=== PATIENT | male | born 1980 | race Caucasian/White ===

== ENCOUNTER 2022-08-20 21:59 | Emergency (ER) | payer SELFPAY ==
[2022-08-20] MEDS ORDERED: KETOROLAC TROMETHAMINE 30 MG/1 ML VIAL IVPUSH ONE (22:12)
[2022-08-20] MEDS ORDERED: ONDANSETRON 4 MG/2 ML VIAL IVPB ONE (22:12)
[2022-08-20] MEDS ORDERED: SODIUM CHLORIDE 1,000 ML IV ONE (22:12)
[2022-08-20] MEDS ORDERED: morphine CARPU-JECT 2 MG/1 ML DISP.SYRIN IVPUSH ONE (22:12)
[2022-08-20] MEDS ORDERED: morphine SULFATE 4 MG/ML VIAL ONE (22:26)
[2022-08-20] MEDS ORDERED: ONDANSETRON 4 MG/2 ML VIAL ONE (22:26)
[2022-08-20] MEDS ORDERED: KETOROLAC TROMETHAMINE 30 MG/1 ML VIAL ONE (22:26)
[2022-08-20 22:29] LABS: HEMOGLOBIN 15.9 G/dL (11.7-16.9); MCHC 34.5 g/dl (32.0-35.9); MEAN CELL VOLUME 89.6 fl (80-96); MEAN PLT VOLUME 8.2 fl (7.5-11.1); PLATELET COUNT 189.9 10^3/uL (134-434); RBC 5.13 10^6/uL (4.00-5.60); WHITE BLOOD COUNT 7.7 10^3/uL (4.0-10.8)
[2022-08-20 22:45] LABS: ALBUMIN 4.5 g/dl (3.4-5.0); BILIRUBIN,TOTAL 0.7 mg/dl (0.2-1); CALCIUM 9.5 mg/dl (8.5-10); CREATININE 1.3 mg/dl (0.55-1.3); TOT PROT 7.5 g/dl (6.4-8.2)
[2022-08-20 22:46] VITALS: BP 128/74; PULSE 75; RESP 18; TEMP 97.9; BMI 24.3
== END 2022-08-20 23:46 | disposition home or self-care (01) ==
LOC: FER 21:59
PROC: 3E0333Z Introduction of Anti-inflammatory into Peripheral Vein, Percutaneous Approach (ICD-10-PCS; principal; 2022-08-20)
PROC: 3E033GC Introduction of Other Therapeutic Substance into Peripheral Vein, Percutaneous Approach (ICD-10-PCS; 2022-08-20)
PROC: 3E033GC Introduction of Other Therapeutic Substance into Peripheral Vein, Percutaneous Approach (ICD-10-PCS; 2022-08-20)
PROC: 3E0337Z Introduction of Electrolytic and Water Balance Substance into Peripheral Vein, Percutaneous Approach (ICD-10-PCS; 2022-08-20)
DX: N23 Unspecified renal colic (principal)
CPT/HCPCS: 36415; 74176-TC; 80053; 81003; 81015; 85027; 99284-25